=== PATIENT | female | born 1940 | race Caucasian/White ===

== ENCOUNTER → 2019-04-15 09:31 | Outpatient (CLI) | payer MEDICARE, OTHER, SELFPAY ==
--- NOTE | 2019-04-15 | DI.US.S_ITS ---
PROCEDURE: US CAROTID DOPPLER BI INDICATIONS: BILATERAL TINNITUS TECHNIQUE: Color and pulse Doppler interrogation was performed of both carotid systems, with image documentation and velocity measurements. COMPARISON: None. FINDINGS: Stenosis calculations are based on SRU (Society of Radiologists in Ultrasound) criteria. Right side: Common carotid artery peak systolic velocity: 74 cm/sec. Internal carotid artery peak systolic velocity: 64 cm/sec. Internal carotid artery end diastolic velocity: 19 cm/sec. External carotid artery peak systolic velocity: 75 cm/sec. ICA/CCA peak systolic ratio: 0.9. Tracy scale imaging description: Mild to moderate plaque. Percent internal carotid artery stenosis: Less than 50% stenosis. Vertebral artery: Flow direction is antegrade. Left side: Common carotid artery peak systolic velocity: 77 cm/sec. Internal carotid artery peak systolic velocity: 77 cm/sec. Internal carotid artery end diastolic velocity: 22 cm/sec. External carotid artery peak systolic velocity: 43 cm/sec. ICA/CCA peak systolic ratio: 1.0. Tracy scale imaging description: Moderate calcified plaque. Percent internal carotid artery stenosis: Less than 50% stenosis. Vertebral artery: Flow direction is antegrade. IMPRESSION: Less than 50% stenosis in the bilateral ICA. Dictated by: Michele Garcia M.D. on 04/15/2019 at 13:40 Approved by: Michele Garcia M.D. on 04/15/2019 at 13:43
== END ==
PROVIDERS: Referring Provider Otolaryngology; Visit Provider Otolaryngology
DX: I65.23 Occlusion and stenosis of bilateral carotid arteries (principal); H93.13 Tinnitus, bilateral
CPT/HCPCS: 93880

== ENCOUNTER → 2019-06-10 07:18 | Outpatient (CLI) | payer MEDICARE, OTHER, SELFPAY ==
[2019-06-10 07:30] LABS: WBC Urine None Seen (0-5/HPF)
[2019-06-10 09:33] LABS: Erythrocyte Sedimentation Rate 8 MM/HR (0-20)
[2019-06-10 09:35] LABS: Add Manual Diff / Slide Review NO; Alanine Aminotransferase 24 IU/L (<35); Albumin 4.6 g/dL (3.5-5.0); Albumin Globulin Ratio 1.5 (1.0-2.8); Alkaline Phosphatase 65 U/L (38-126); Aspartate Aminotransferase 42 IU/L (14-36); BUN Creatinine Ratio 22.6 (6-22); Basophils Absolute Auto 100 /uL (0-100); Basophils Percent Auto 2.2 % (0-2); Bilirubin Total 0.4 mg/dL (0.2-1.3); Blood Urea Nitrogen 21 mg/dL (7-17); Carbon Dioxide 25 mmol/L (22-32); Chloride 106 mmol/L (98-107); Cholesterol 217 mg/dL (140-199); Eosinophils Absolute Auto 300 /uL (0-450); Estimated Glomerular Filt Rate 58.5 mL/min (>60); Globulin 3.1 g/dL (1.7-4.1); Glucose 93 mg/dL (80-110); HDL Cholesterol 79 mg/dL (40-60); HEMOLYSIS < 15 (0-50); Hematocrit 40.1 % (36-46); Hemoglobin 13.4 g/dL (12.0-16.0); LDL Cholesterol Calculated 125 mg/dL (<100); Lymphocytes Absolute Auto 1400 /uL (1100-4500); Lymphocytes Percent Auto 28.7 % (25-40); Mean Corpuscular HGB Conc 33.6 % (30-36); Mean Corpuscular Hemoglobin 29.8 PG (26-34); Mean Corpuscular Volume 88.7 fL (80-100); Monocytes Absolute Auto 400 /uL (0-900); Monocytes Percent Auto 8.9 % (3-14); Neutrophils Absolute Auto 2700 /uL (1500-7000); Neutrophils Percent Auto 54.2 % (50-75); Platelet Count 260 X10^3/uL (150-400); Potassium 5.3 mmol/L (3.4-5.1); Red Blood Cell Count 4.52 X10^6/uL (4.0-5.2); Red Cell Distribution Width 14.1 % (11.6-14.8); Sodium 138 mmol/L (137-145); Total Protein 7.7 g/dL (6.3-8.2); Triglycerides 66 mg/dL (35-150); White Blood Cell Count 4.9 X10^3/uL (4.5-11.0)
[2019-06-10 09:39] LABS: C-Reactive Protein Quant < 0.5 mg/dL (<1.0)
[2019-06-10 09:44] LABS: Hemoglobin A1C% w Est Avg Glu 5.3 % (4.0-6.0)
[2019-06-10 09:48] LABS: Free T4, Direct Thyroxine 1.69 ng/dL (0.78-2.19)
[2019-06-10 10:02] LABS: Thyroid Stimulating Hormone 0.83 uIU/mL (0.47-4.68)
[2019-06-10 10:07] LABS: Appearance Urine UA CLEAR; Bilirubin Urine UA NEGATIVE (NEGATIVE); Color Urine UA YELLOW; Glucose Urine UA NEGATIVE (Negative); Ketones Urine UA NEGATIVE (NEGATIVE); Leukocyte Esterase Urine UA NEGATIVE (NEGATIVE); Nitrite Urine UA NEGATIVE (Negative); Occult Blood Urine UA NEGATIVE (Negative); Protein Urine UA NEGATIVE (Negative); Specific Gravity Urine UA 1.015 (1.000-1.035); Urobilinogen Urine UA 0.2 E.U./dL (0.2)
[2019-06-10 10:08] LABS: Bacteria Urine Occasional (0-1); RBC Urine 0-1/HPF (0-5/HPF)
== END ==
PROVIDERS: Referring Provider Specialist; Visit Provider Specialist
DX: R50.9 Fever, unspecified (principal); R73.9 Hyperglycemia, unspecified; E03.9 Hypothyroidism, unspecified
CPT/HCPCS: 36415; 80053; 80061; 81001; 83036; 84439; 84443; 85025; 85651; 86140

== ENCOUNTER → 2020-05-07 12:01 | Outpatient (CLI) | payer MEDICARE, OTHER, SELFPAY ==
[2020-05-07] MEDS: COVID-19 VACC, Ad26(JANSSEN)/PF 0.5 ML IM (12:18)
== END ==
PROVIDERS: Visit Provider Internal Medicine
DX: Z23 Encounter for immunization (principal)
CPT/HCPCS: 0031A; 91303

== ENCOUNTER → 2020-07-24 10:40 | Outpatient (CLI) | payer MEDICARE, OTHER, SELFPAY ==
--- NOTE | 2020-07-24 10:43 | DI.MG.S_ITS ---
BILATERAL DIGITAL SCREENING MAMMOGRAM 3D/2D WITH CAD: 07/24/2020 CLINICAL: Family history of breast cancer. Routine screening. Comparison is made to exams dated: 07/30/2018 mammogram, 07/04/2016 mammogram, and 06/12/2015 mammogram - [facility]. The tissue of both breasts is extremely dense, which lowers the sensitivity of mammography. Current study was also evaluated with a Computer Aided Detection (CAD) system. No significant masses, calcifications, or other findings are seen in either breast. There has been no significant interval change. IMPRESSION: NEGATIVE There is no mammographic evidence of malignancy. A 1 year screening mammogram is recommended. This exam was interpreted at Station ID: [id number]. NOTE: For mammograms, a report in lay terms will be sent to the patient. Approximately 15% of breast malignancies will not be visualized mammographically. In the management of a palpable breast mass, a negative mammogram must not discourage biopsy of a clinically suspicious lesion. Electronically Signed By: Michele worthington/fady:07/24/2020 14:50:31 letter sent: Normal Exam ACR BI-RADS Category 1: Negative [id number]
== END ==
PROVIDERS: PCP Specialist; Referring Provider Specialist; Visit Provider Specialist
DX: Z12.31 Encounter for screening mammogram for malignant neoplasm of breast (principal); Z80.3 Family history of malignant neoplasm of breast
CPT/HCPCS: 77063; 77067

== ENCOUNTER → 2021-02-04 08:34 | Outpatient (CLI) | payer MEDICARE, OTHER, SELFPAY ==
[2021-02-04 11:30] LABS: Cortisol AM (Before 10AM) 10.4 ug/dL (4.46-22.7)
== END ==
PROVIDERS: PCP Specialist; Referring Provider Specialist; Visit Provider Specialist
DX: R53.83 Other fatigue (principal)
CPT/HCPCS: 36415; 82533

== ENCOUNTER → 2021-02-05 11:23 | Outpatient (CLI) | payer MEDICARE, OTHER, SELFPAY ==
--- NOTE | 2021-02-05 | DI.RAD.S_ITS ---
PROCEDURE: XR DEXA AXIAL SKELETON INDICATIONS: Other specified disorders of bone density and stru COMPARISON: None. FINDINGS: This blank DEXA report has been sent in error by the PACS system. The correct and complete report will be forthcoming in 1-2 days. Thank you for your patience and understanding. Dictated by: Paris Bansal MD, PhD on 02/05/2021 at 14:38 Approved by: Paris Bansal MD, PhD on 02/05/2021 at 14:38
== END ==
PROVIDERS: PCP Specialist; Referring Provider Specialist; Visit Provider Specialist
DX: M81.0 Age-related osteoporosis without current pathological fracture (principal); E07.9 Disorder of thyroid, unspecified; Z78.0 Asymptomatic menopausal state; Z82.62 Family history of osteoporosis
CPT/HCPCS: 77080

== ENCOUNTER → 2023-01-17 13:27 | Outpatient (CLI) | payer MEDICARE, OTHER, SELFPAY ==
[2023-01-17 14:17] LABS: Add Manual Diff / Slide Review NO; Basophils Absolute Auto 100 /uL (0-100); Basophils Percent Auto 1.3 % (0-2); Eosinophils Absolute Auto 300 /uL (0-450); Eosinophils Percent Auto 3.7 % (2-4); Hematocrit 39.7 % (36-46); Hemoglobin 13.5 g/dL (12.0-16.0); Lymphocytes Absolute Auto 1700 /uL (1100-4500); Lymphocytes Percent Auto 22.6 % (25-40); Mean Corpuscular Hemoglobin 29.5 PG (26-34); Mean Corpuscular Volume 86.7 fL (80-100); Monocytes Absolute Auto 600 /uL (0-900); Monocytes Percent Auto 7.3 % (3-14); Neutrophils Absolute Auto 4900 /uL (1500-7000); Neutrophils Percent Auto 65.1 % (50-75); Platelet Count 251 X10^3/uL (150-400); Red Blood Cell Count 4.58 X10^6/uL (4.0-5.2); Red Cell Distribution Width 13.7 % (11.6-14.8); White Blood Cell Count 7.6 X10^3/uL (4.5-11.0)
[2023-01-17 14:27] LABS: Hemoglobin A1C% w Est Avg Glu 5.3 % (4.0-6.0)
[2023-01-17 14:50] LABS: Alanine Aminotransferase 20 IU/L (<35); Albumin 4.4 g/dL (3.5-5.0); Albumin Globulin Ratio 1.6 (1.0-2.8); Alkaline Phosphatase 79 U/L (38-126); Aspartate Aminotransferase 30 IU/L (14-36); BUN Creatinine Ratio 26.2 (6-22); Bilirubin Total 0.6 mg/dL (0.2-1.3); Blood Urea Nitrogen 27 mg/dL (7-17); Carbon Dioxide 23 mmol/L (22-32); Chloride 103 mmol/L (98-107); Cholesterol 212 mg/dL (140-199); Estimated Glomerular Filt Rate 55 mL/min (>60); Globulin 2.8 g/dL (1.7-4.1); Glucose 106 mg/dL (80-110); HDL Cholesterol 79 mg/dL (40-60); HEMOLYSIS < 15 (0-50); LDL Cholesterol Calculated 109 mg/dL (<100); Potassium 4.3 mmol/L (3.4-5.1); Sodium 136 mmol/L (137-145); Total Protein 7.2 g/dL (6.3-8.2); Triglycerides 121 mg/dL (35-150)
[2023-01-17 15:18] LABS: Thyroid Stimulating Hormone 0.368 uIU/mL (0.47-4.68)
== END ==
PROVIDERS: PCP Specialist; Referring Provider Internal Medicine Cardiovascular Disease; Visit Provider Internal Medicine Cardiovascular Disease
DX: I50.32 Chronic diastolic (congestive) heart failure (principal); I10 Essential (primary) hypertension
CPT/HCPCS: 36415; 80053; 80061; 83036; 84443; 85025

== ENCOUNTER → 2023-02-14 14:23 | Outpatient (CLI) | payer MEDICARE, OTHER, SELFPAY ==
--- NOTE | 2023-02-14 14:25 | DI.MG.S_ITS ---
BILATERAL DIGITAL SCREENING MAMMOGRAM 3D/2D WITH CAD: 02/14/2023 CLINICAL: Routine screening. Family history of breast cancer. Comparison is made to exams dated: 07/24/2020 mammogram - [facility], 07/30/2018 mammogram, and 07/04/2016 mammogram - [facility]. Both breasts are heterogeneously dense, which may obscure small masses (category c / 51-75% glandular tissue). Current study was also evaluated with a Computer Aided Detection (CAD) system. No significant masses, calcifications, or other findings are seen in either breast. There has been no significant interval change. IMPRESSION: NEGATIVE There is no mammographic evidence of malignancy. A 1 year screening mammogram is recommended. Based on the Tyrer Cuzick model (a risk assessment model) the patient's lifetime risk is 1.9% and her 10 year risk is 0.0%. According to the ACR, ACS, and NCCN guidelines, an annual breast MRI exam along with mammogram is recommended if the patient's lifetime risk is 20% or greater. This exam was interpreted at Station ID: [id number]. NOTE: For mammograms, a report in lay terms will be sent to the patient. Approximately 15% of breast malignancies will not be visualized mammographically. In the management of a palpable breast mass, a negative mammogram must not discourage biopsy of a clinically suspicious lesion. Electronically Signed By: Vianey mejia/fady:02/14/2023 16:44:40 letter sent: Normal Exam ACR BI-RADS Category 1: Negative [id number]
== END ==
PROVIDERS: PCP Specialist; Referring Provider Specialist; Visit Provider Specialist
DX: Z12.31 Encounter for screening mammogram for malignant neoplasm of breast (principal); Z80.3 Family history of malignant neoplasm of breast
CPT/HCPCS: 77063; 77067

== ENCOUNTER → 2023-02-24 09:20 | Outpatient (CLI) | payer MEDICARE, OTHER, SELFPAY ==
--- NOTE | 2023-02-24 | DI.NM.S_ITS ---
PROCEDURE: NM SARA PERF SPECT R&S PHARM Rest and pharmacological stress myocardial perfusion SPECT with gated imaging and ejection fraction RADIOPHARMACEUTICAL: 12.3 mCi Tc-99m tetrafosmin IV at rest and 26.2 mCi Tc-99m tetrafosmin IV at peak effect of pharmacological stress. Agi-dai-doqhbolx was performed. INDICATIONS: SHORTNESS OF BREATH TECHNIQUE: Radiopharmaceutical was injected at peak stress test, and also at rest. SPECT images were obtained. SPECT myocardial perfusion images were displayed in short axis, horizontal long axis, and vertical long axis views. Gated images were reviewed using [employer] software. COMPARISON: None. CARDIAC STRESS: A pharmacologic stress test was performed under the supervision of an attending staff, using an infusion of lexiscan 0.4mg IV X1. Hemodynamic data: There is normal blood pressure and heart rate response to pharmacologic stress. Symptoms: The patient denied anginal chest pain. Aminophylline: none EKG: No diagnostic changes of ischemia; no ectopy. FINDINGS: Raw data: There is good myocardial uptake of radiotracer. No significant motion artifacts. Pcdd-yg-bebus ratio is 0.29 (normal is less than 0.38 for tetrafosmin tracer). Left ventricle function: Gated images demonstrate normal left ventricular wall thickening. No segmental wall motion abnormalities. No transient ischemic dilation; TID is 1.18 (normal less than 1.3). Left ventricle resting end diastolic volume is 48mL. Left ventricle stress ejection fraction is 87%; normal range is above 45%. Myocardial perfusion: There is a moderately intense fixed apical septal defect that improves with prone imaging, suggesting artifact but old small non-transmural infarction can't be excluded. No ischemia. IMPRESSION: Low risk, probably normal pharm nuclear stress test. 1) There is a moderately intense fixed apical septal defect that improves with prone imaging, suggesting artifact but old small non-transmural infarction can't be excluded. No ischemia. 2) Normal left ventricular size, wall motion, and systolic function (EF post stress 87%). 3) No angina during the study. 4) No ST changes during the study. 5) No prior nuclear stress test available for comparison. Dictated by: Alfredo Hogue MD on 02/24/2023 at 17:08 Approved by: Alfredo Hogue MD on 02/24/2023 at 17:11
== END ==
LOC: NUCM 09:22
PROVIDERS: PCP Nurse Practitioner; Referring Provider Internal Medicine Cardiovascular Disease; Visit Provider Internal Medicine Cardiovascular Disease
DX: R06.02 Shortness of breath (principal)
CPT/HCPCS: 78452; 93017; A9502; J2785

== ENCOUNTER → 2023-05-30 10:16 | Outpatient (CLI) | payer OTHER, SELFPAY ==
--- NOTE | 2023-05-30 10:17 | DI.RAD.S_ITS ---
PROCEDURE: XR SHOULDER LT MIN 2V INDICATIONS: Left shoulder pain x4+ mos TECHNIQUE: 3 views of the shoulder were acquired. COMPARISON: None. FINDINGS: Bones: No fractures or dislocations. Mild degenerative changes of the glenohumeral acromioclavicular joints. No suspicious bony lesions. Visualized ribs appear intact. Soft tissues: No suspicious soft tissue calcifications. IMPRESSION: No acute bony abnormality. Mild degenerative changes of the glenohumeral and acromioclavicular joints. Dictated by: Simeon Odonnell M.D. on 05/30/2023 at 11:46 Approved by: Simeon Odonnell M.D. on 05/30/2023 at 11:46
== END ==
PROVIDERS: Family Provider Nurse Practitioner; PCP Nurse Practitioner; Referring Provider Nurse Practitioner; Visit Provider Nurse Practitioner
DX: M25.512 Pain in left shoulder (principal)
CPT/HCPCS: 73030

== ENCOUNTER → 2023-08-30 12:23 | Outpatient (CLI) | payer OTHER, SELFPAY ==
[2023-08-30 13:16] LABS: Appearance Urine UA CLEAR; Bilirubin Urine UA NEGATIVE (NEGATIVE); Color Urine UA YELLOW; Glucose Urine UA NEGATIVE (Negative); Ketones Urine UA NEGATIVE (NEGATIVE); Leukocyte Esterase Urine UA NEGATIVE (NEGATIVE); Nitrite Urine UA NEGATIVE (Negative); Occult Blood Urine UA NEGATIVE (Negative); Protein Urine UA NEGATIVE (Negative); Urobilinogen Urine UA 0.2 E.U./dL (0.2)
[2023-08-30 13:18] LABS: Add Manual Diff / Slide Review NO; Basophils Absolute Auto 100 /uL (0-100); Basophils Percent Auto 0.8 % (0-2); Eosinophils Absolute Auto 200 /uL (0-450); Eosinophils Percent Auto 3.3 % (2-4); Hematocrit 39.8 % (36-46); Hemoglobin 13.6 g/dL (12.0-16.0); Lymphocytes Absolute Auto 1500 /uL (1100-4500); Mean Corpuscular HGB Conc 34.3 % (30-36); Mean Corpuscular Hemoglobin 29.5 PG (26-34); Mean Corpuscular Volume 86.2 fL (80-100); Monocytes Absolute Auto 500 /uL (0-900); Monocytes Percent Auto 7.8 % (3-14); Neutrophils Absolute Auto 4200 /uL (1500-7000); Neutrophils Percent Auto 65.1 % (50-75); Platelet Count 255 X10^3/uL (150-400); Red Blood Cell Count 4.61 X10^6/uL (4.0-5.2); Red Cell Distribution Width 13.9 % (11.6-14.8); White Blood Cell Count 6.4 X10^3/uL (4.5-11.0)
[2023-08-30 13:27] LABS: Bacteria Urine Occasional (0-1); Culture Indicated Urine Cult Not Indicated; RBC Urine 0-1/HPF (0-5/HPF); Squamous Epithelial Cell Urine 0-1 /HPF (0-5/HPF); Urine Volume 10mL (spun); WBC Urine 0-1/HPF (0-5/HPF)
[2023-08-30 13:46] LABS: Hemoglobin A1C% w Est Avg Glu 5.2 % (4.0-6.0)
[2023-08-30 13:48] LABS: Alanine Aminotransferase 23 IU/L (<35); Albumin 4.9 g/dL (3.5-5.0); Albumin Globulin Ratio 1.7 (1.0-2.8); Alkaline Phosphatase 87 U/L (38-126); Aspartate Aminotransferase 35 IU/L (14-36); BUN Creatinine Ratio 21.5 (6-22); Bilirubin Total 0.5 mg/dL (0.2-1.3); Blood Urea Nitrogen 20 mg/dL (7-17); Calcium 9.9 mg/dL (8.4-10.2); Carbon Dioxide 26 mmol/L (22-32); Chloride 103 mmol/L (98-107); Cholesterol 245 mg/dL (140-199); Estimated Glomerular Filt Rate > 60 mL/min (>60); Globulin 2.9 g/dL (1.7-4.1); Glucose 109 mg/dL (80-110); HEMOLYSIS < 15 (0-50); Potassium 4.9 mmol/L (3.4-5.1); Sodium 137 mmol/L (137-145); Total Protein 7.8 g/dL (6.3-8.2); Triglycerides 96 mg/dL (35-150)
[2023-08-30 13:56] LABS: HDL Cholesterol 111 mg/dL (40-60); LDL Cholesterol Calculated 115 mg/dL (<100)
[2023-08-30 14:08] LABS: Free T3, Triiodothyronine Free 4.17 pg/mL (2.77-5.27); Free T4, Direct Thyroxine 1.89 ng/dL (0.78-2.19)
[2023-08-30 14:21] LABS: Thyroid Stimulating Hormone 1.12 uIU/mL (0.47-4.68)
[2023-08-30 15:03] LABS: Creatinine Urine Random 66.14 mg/dL
[2023-08-30 15:06] LABS: Microalbumin Urine Random 1.6 mg/dL (0-1.6)
== END ==
PROVIDERS: Family Provider Nurse Practitioner; PCP Nurse Practitioner; Referring Provider Nurse Practitioner; Visit Provider Nurse Practitioner
DX: F41.9 Anxiety disorder, unspecified (principal); F32.A Depression, unspecified; R73.01 Impaired fasting glucose; I10 Essential (primary) hypertension; E03.9 Hypothyroidism, unspecified; N28.9 Disorder of kidney and ureter, unspecified; R30.0 Dysuria; Z87.898 Personal history of other specified conditions
CPT/HCPCS: 36415; 80053; 80061; 81001; 82043; 82570; 83036; 84439; 84443; 84481; 85025

== ENCOUNTER → 2024-03-11 14:50 | Outpatient (CLI) | payer OTHER, SELFPAY ==
--- NOTE | 2024-03-11 14:52 | DI.RAD.S_ITS ---
PROCEDURE: XR THORACIC SPINE 2V INDICATIONS: pain, fell in Oct TECHNIQUE: 3 views of the thoracic spine were acquired. COMPARISON: None. FINDINGS: Thoracic spine curvature and alignment: Slight rightward curve noted. Bones: There are no fractures or other osseous abnormalities. Disc spaces: Mild degenerative disc disease seen throughout the upper midthoracic spine. Soft tissues: No soft tissue swelling, calcification or mass. IMPRESSION: No fracture or other posttraumatic change. Dictated by: Vinicio Garcia M.D. on 03/12/2024 at 9:29 Approved by: Vinicio Garcia M.D. on 03/12/2024 at 9:29
--- NOTE | 2024-03-11 14:52 | DI.RAD.S_ITS ---
PROCEDURE: XR LUMBAR SPINE 2-3V INDICATIONS: pain, fell in Oct TECHNIQUE: 3 views of the lumbar spine were acquired. COMPARISON: None. FINDINGS: Lumbar spine curvature and alignment: Slight rightward curve lower thoracic and lumbar spine appreciated. Bones: There are no osseous abnormalities. Disc spaces: Mild degenerative disc disease is seen from T8-9 through L1-2. There is mild degenerative facet disease L4-5 L5-S1. Soft tissues: No soft tissue swelling, calcification or mass. IMPRESSION: Mild degeneration. No fracture posttraumatic change Dictated by: Vinicio Garcia M.D. on 03/12/2024 at 9:30 Approved by: Vinicio Garcia M.D. on 03/12/2024 at 9:31
[2024-03-11 16:40] LABS: Hematocrit 41.3 % (36-46); Hemoglobin 14.1 g/dL (12.0-16.0); Mean Corpuscular HGB Conc 34.1 % (30-36); Mean Corpuscular Hemoglobin 29.8 PG (26-34); Mean Corpuscular Volume 87.4 fL (80-100); Platelet Count 254 X10^3/uL (150-400); Red Blood Cell Count 4.72 X10^6/uL (4.0-5.2); Red Cell Distribution Width 13.7 % (11.6-14.8); White Blood Cell Count 7.1 X10^3/uL (4.5-11.0)
[2024-03-11 17:07] LABS: Alanine Aminotransferase 26 IU/L (<35); Albumin 4.9 g/dL (3.5-5.0); Alkaline Phosphatase 81 U/L (38-126); Aspartate Aminotransferase 36 IU/L (14-36); BUN Creatinine Ratio 22.1 (6-22); Bilirubin Total 0.6 mg/dL (0.2-1.3); Blood Urea Nitrogen 21 mg/dL (7-17); Calcium 9.7 mg/dL (8.4-10.2); Carbon Dioxide 26 mmol/L (22-32); Chloride 104 mmol/L (98-107); Cholesterol 179 mg/dL (140-199); Estimated Glomerular Filt Rate 60 mL/min (>60); Glucose 86 mg/dL (80-110); HDL Cholesterol 88 mg/dL (40-60); HEMOLYSIS < 15 (0-50); LDL Cholesterol Calculated 75 mg/dL (<100); Sodium 138 mmol/L (137-145); Triglycerides 82 mg/dL (35-150)
[2024-03-11 17:37] LABS: TSH w/ Reflex to FT4 0.56 uIU/mL (0.47-4.68)
[2024-03-11 17:58] LABS: Albumin Globulin Ratio 1.7 (1.0-2.8); Globulin 2.9 g/dL (1.7-4.1); Total Protein 7.8 g/dL (6.3-8.2)
== END ==
PROVIDERS: Family Provider Nurse Practitioner; PCP Family Medicine; Referring Provider Family Medicine; Visit Provider Family Medicine
DX: E78.5 Hyperlipidemia, unspecified (principal); M54.6 Pain in thoracic spine; M54.50 Low back pain, unspecified; F32.A Depression, unspecified; I10 Essential (primary) hypertension; E03.9 Hypothyroidism, unspecified
CPT/HCPCS: 36415; 72070; 72100; 80053; 80061; 84443; 85027

== ENCOUNTER 2024-03-26 13:40 | Emergency (ER) | payer OTHER, SELFPAY ==
[2024-03-26 14:05] VITALS: BP 141/69; PULSE 71; RESP 18; TEMP 37.1; O2SAT 97; BMI 17.2
--- NOTE | 2024-03-26 14:19 | DI.RAD.S_ITS ---
PROCEDURE: XR WRIST RT MIN 3V INDICATIONS: Fall last night, landed on R arm, bruising and swelling TECHNIQUE: 4 views of the wrist were acquired. COMPARISON: None. FINDINGS: Bones: Question possible nondisplaced distal scaphoid fracture extending to the distal articular surface. This is not definite. It is not a typical scaphoid waist fracture. Question possible nondisplaced radial styloid fracture. No suspicious bony lesions. Soft tissues: No suspicious soft tissue calcifications. IMPRESSION: Question atypical scaphoid fracture and question radial styloid fracture. Comment: Recommend CT wrist. Dictated by: Anthony Enrique M.D. on 03/26/2024 at 14:54 Approved by: Anthony Enrique M.D. on 03/26/2024 at 14:55
--- NOTE | 2024-03-26 14:20 | DI.RAD.S_ITS ---
PROCEDURE: XR HAND RT MIN 3V INDICATIONS: Fall, R hand bruising and swelling TECHNIQUE: 3 views of the hand(s) acquired. COMPARISON: [facility], CR, XR WRIST RT MIN 3V, 03/26/2024, 14:21. FINDINGS: Bones: Possible vertical nondisplaced fracture of the distal scaphoid extending to the triscaphe joint. This is not definite. Possible nondisplaced radial styloid fracture. This is not definite. Soft tissues: No suspicious soft tissue calcifications. IMPRESSION: Question atypical distal scaphoid fracture and question radial styloid fracture. Comment: Recommend CT wrist. Dictated by: Anthony Enrique M.D. on 03/26/2024 at 15:01 Approved by: Anthony Enrique M.D. on 03/26/2024 at 15:11
--- NOTE | 2024-03-26 15:08 | DI.CT.S_ITS ---
PROCEDURE: CT UE RT WO CON INDICATIONS: ?schaphoid, radial styloid fx TECHNIQUE: Noncontrast 1 mm axial sections acquired through the carpal bones, with coronal and sagittal reformats. COMPARISON: [facility], CR, XR WRIST RT MIN 3V, 03/26/2024, 14:21. FINDINGS: Image quality: Excellent. Bones: There is a minimally displaced fracture involving posterior aspect of distal radius extending to base of radial styloid. Vertical fracture is also noted involving dorsal aspect of triquetrum with minimal posterior and distal displacement at fracture site. No other fracture or dislocation. No suspicious bony lesions. Osteoarthritic changes are noted throughout wrist joints. Soft tissues: Mild soft tissue swelling around wrist joint and over dorsal aspect of carpal bones are seen. No discrete drainable fluid collection. No abnormal soft tissue calcifications. No full-thickness extensor or flexor tendon ruptures. IMPRESSION: 1. Minimally displaced intra-articular fracture involving dorsal aspect of distal radius as above. 2. Minimally displaced fracture involving posterior aspect of triquetrum. 3. No scaphoid fracture. Wrist joint osteoarthritis. No CT evidence of avascular necrosis. 4. Soft tissue swelling over dorsal aspect of carpal bones and around wrist joint. No abnormal soft tissue calcifications. No full-thickness wrist tendon rupture. Dictated by: Ronaldo Stephens M.D. on 03/26/2024 at 15:50 Approved by: Ronaldo Stephens M.D. on 03/26/2024 at 15:54
[2024-03-26] MEDS: HYDROCODONE/ACET 5/325 TABLET 1 TAB PO (16:56)
[2024-03-26 17:02] VITALS: BP 140/63; PULSE 70; RESP 16; O2SAT 96
--- NOTE | 2024-04-08 15:44 | ED.FALL ---
HPI - Fall <Sigrid Zepeda PA-C - Last Filed: 04/08/24 15:58> General Chief Complaint: Fall Stated Complaint: Fell and hit head and rt wrist pain Time Seen by Provider: 03/26/24 15:06 Source: patient Mode of arrival: Family Vehicle History of Present Illness HPI Narrative: 83-year-old female presents to the ED status post a right wrist injury and head injury after falling last night. Patient had a trip and fall accident in the kitchen, causing her to fall to the ground, tried to brace her fall with her right hand. Patient also hit the left temporal on an open hide curer door. Denies LOC. Not on blood thinners. Patient's current complaint is about the right wrist swelling and pain and inability to move it without pain. No numbness, tingling, weakness. Patient states that her right temporal is very mildly sore, is not concerned about it. Related Data Home Medications Medication Instructions Recorded Confirmed trazodone 100 mg tablet mg PO DAILY 03/28/24 03/28/24 Previous Rx's Medication Instructions Recorded ibuprofen 600 mg tablet 600 mg PO TID PRN 04/04/23 neck/shoulder/upper back pain #90 tabs atorvastatin 20 mg tablet (Lipitor) 20 mg PO BEDTIME cholesterol #90 09/19/23 tabs levothyroxine 100 mcg tablet 100 mcg PO DAILY #90 tabs 09/19/23 sertraline 100 mg tablet 200 mg (2 x 100 mg) PO DAILY #180 09/19/23 tabs losartan 25 mg tablet 25 mg PO DAILY #90 tabs 11/14/23 losartan 50 mg tablet 50 mg PO DAILY #90 tabs 11/14/23 Allergies Allergy/AdvReac Type Severity Reaction Status Date / Time budesonide [BUDESONIDE] Allergy Unknown tachycardia Unverified 03/28/24 09:19 Review of Systems <Sigrid Zepeda PA-C - Last Filed: 04/08/24 15:58> Constitutional Constitutional: Denies chills, Denies fatigue, Denies fever(s), Denies frequent falls, Denies lethargy and Denies weakness Eyes Eyes: Denies change in vision, Denies eye discharge, Denies irritation and Denies loss of vision ENT Ears, Nose, Mouth, and Throat: Denies change in voice, Denies dizziness, Denies neck pain, Denies sore throat and Denies throat swelling Cardiovascular Cardiovascular: Denies chest pain, Denies irregular heart rhythm, Denies lightheadedness, Denies palpitations, Denies dyspnea, Denies dyspnea on exertion and Denies orthopnea Respiratory Respiratory: Denies cough, Denies dyspnea, Denies dyspnea on exertion and Denies wheezing Gastrointestinal Gastrointestinal: Denies abdominal pain, Denies change in bowel habits, Denies diarrhea, Denies nausea and Denies vomiting Musculoskeletal Musculoskeletal: Denies neck pain and Denies numbness Comments: Right wrist swelling, pain Integumentary/Breasts Skin/Breast: Denies pruritus, Denies erythema, Denies rash and Denies wounds Neurologic Neurologic: Denies behavioral changes, Denies confusion, Denies dizziness, Denies frequent falls, Denies loss of vision, Denies numbness and Denies weakness Psychiatric Psychiatric: Denies anxiety, Denies behavioral changes, Denies confusion, Denies depression, Denies homicidal ideation and Denies suicidal ideation Endocrine Endocrine: Denies fatigue, Denies flushing and Denies palpitations Hematologic/Lymphatic Hematologic/Lymphatic: Denies easy bruising Allergic/Immunologic Allergic/Immunologic: Denies urticaria, Denies throat swelling and Denies wheezing Patient History <Sigrid Zepeda PA-C - Last Filed: 04/08/24 15:58> Medical History Hyperlipidemia Allergies Depression Anxiety Shoulder pain Hearing loss (~2021) Fibroids History of urinary incontinence Fecal incontinence Skin rash (~2015) History of colitis Hypertension (~1971) Hypothyroidism Surgical History Anesthesia History of hysterectomy Social History Smoking Status: Never smoker Smoking Status: Never smoker Exam <Sigrid Zepeda PA-C - Last Filed: 04/08/24 15:58> Narrative Exam Narrative: Const General:?cooperative, healthy appearing and comfortable [facility] Head: Mild swelling, Tenderness to the left temporal. Ears:?hearing grossly normal bilaterally Nose:?external nose normal Face and sinus:?normal facial exam and sinuses nontender Mouth:?oral mucosae normal Throat:?posterior oropharynx normal Eyes General:?appearance normal, both eyes and all related structures Neck Neck:?normal visual inspection and no lymphadenopathy noted Resp Effort & Inspection:?normal respiratory effort Auscultation:?clear to auscultation bilaterally Cardio Rate:?regular rate Rhythm:?regular rhythm Musculoskeletal Swelling, tenderness to palpation to right wrist. Range of motion severely limited by pain. Neurovascularly intact. Neuro General:?patient alert, patient awake and patient oriented x3 Initial Vital Signs Initial Vital Signs: Vital Signs Temperature 98.7 F 03/26/24 14:05 Pulse Rate 71 03/26/24 14:05 Respiratory Rate 18 03/26/24 14:05 Blood Pressure 141/69 H 03/26/24 14:05 Pulse Oximetry 97 03/26/24 14:05 Oxygen Delivery Method Room Air 03/26/24 14:05 <Lorena Fuchs DO - Last Filed: 04/10/24 07:15> Initial Vital Signs Initial Vital Signs: Vital Signs Temperature 98.7 F 03/26/24 14:05 Pulse Rate 71 03/26/24 14:05 Respiratory Rate 18 03/26/24 14:05 Blood Pressure 141/69 H 03/26/24 14:05 Pulse Oximetry 97 03/26/24 14:05 Oxygen Delivery Method Room Air 03/26/24 14:05 Course <Sigrid Zepeda PA-C - Last Filed: 04/08/24 15:58> Orders Ordered: Discontinued Medications Hydrocodone Bitart/Acetaminophen (Hydrocodone/Acet 5/325 Tablet) 1 tab PO NOW ONE Stop: 03/26/24 16:38 Last Admin: 03/26/24 16:56 Dose: 1 tab Documented By: SHAWN <Lorena Fuchs DO - Last Filed: 04/10/24 07:15> Orders Ordered: Discontinued Medications Hydrocodone Bitart/Acetaminophen (Hydrocodone/Acet 5/325 Tablet) 1 tab PO NOW ONE Stop: 03/26/24 16:38 Last Admin: 03/26/24 16:56 Dose: 1 tab Documented By: SHAWN MDM - Fall <Sigrid Zepeda PA-C - Last Filed: 04/08/24 15:58> [facility] Narrative Medical decision making narrative: 83-year-old female presents to the ED status post a right wrist injury and head injury after falling last night. X-rays of the hand and wrist were obtained. Wrist x-ray with questionable atypical scaphoid fracture and questionable radial styloid fracture. Radiologist recommended a CT wrist. Patient declines head CT. CT shows a minimally displaced intra-articular fracture involving dorsal aspect of distal radius. There is a minimally displaced fracture involving posterior aspect of triquetrum. No scaphoid fracture. Wrist joint osteoarthritis. No CT evidence of avascular necrosis. Soft tissue swelling over dorsal aspect of carpal bones and around wrist joint. No abnormal soft tissue calcifications. No full-thickness wrist tendon rupture. Discussed findings with patient. Patient was fitted in a splint, sling. Pain medications prescribed. Recommend follow-up with ortho as soon as possible. ED return precautions discussed with patient. Patient verbalized understanding. Medical records reviewed: Yes Discharge Plan Departure Patient Disposition: Home Clinical Impression: Distal radius fracture, Fx triquetral, wrist-closed Instructions: DI for Wrist Fracture, How to Prevent Falls Activity Restrictions/Additional Instructions: You were evaluated in the ED today for a wrist injury. You have 2 fractures of the right wrist. You have been fitted in a splint and a sling. Please keep these on for the next 4-6 weeks. [facility] at [phone] to make an appointment for follow-up. You may take hydrocodone and Tylenol for pain relief. Return to the ED if you have worsening symptoms, numbness, tingling, weakness. Prescriptions: No Action trazodone 100 mg tablet PO DAILY losartan 25 mg tablet 25 mg PO DAILY Qty: 90 3RF Rx Instructions: Take one in the morning. losartan 50 mg tablet 50 mg PO DAILY Qty: 90 3RF Rx Instructions: Take one in the evening. ibuprofen 600 mg tablet 600 mg PO TID PRN (Reason: neck/shoulder/upper back pain) Qty: 90 1RF levothyroxine 100 mcg tablet 100 mcg PO DAILY Qty: 90 3RF sertraline 100 mg tablet 200 mg PO DAILY Qty: 180 3RF atorvastatin [Lipitor] 20 mg tablet 20 mg PO BEDTIME Qty: 90 3RF Referrals: Ky Rosas DO [Primary Care Provider] - Stand Alone Forms: Patient Portal/API/Survey ED Sign-out <Lorena Fuchs DO - Last Filed: 04/10/24 07:15> Cosign ED Attending Rohith Attestation: I was immediately available in the department for consultation.
== END 2024-03-26 17:03 | disposition home or self-care (01) ==
PROVIDERS: Emergency Provider Student in an Organized Health Care Education/Training Program; Family Provider Nurse Practitioner; PCP Family Medicine
DX: S52.501A Unspecified fracture of the lower end of right radius, initial encounter for closed fracture (principal); S62.111A Displaced fracture of triquetrum [cuneiform] bone, right wrist, initial encounter for closed fracture; S09.90XA Unspecified injury of head, initial encounter; W01.198A Fall on same level from slipping, tripping and stumbling with subsequent striking against other object, initial encounter
CPT/HCPCS: 29125; 29550; 73110; 73130; 73200; 99284

== ENCOUNTER → 2024-06-14 14:03 | Outpatient (CLI) | payer OTHER, SELFPAY ==
--- NOTE | 2024-06-14 14:04 | DI.RAD.S_ITS ---
PROCEDURE: XR DEXA AXIAL SKELETON INDICATIONS: screening for osteoporosis progression COMPARISON: [facility], CR, XR DEXA AXIAL SKELETON, 02/05/2021, 12:18. FINDINGS: Lumbar Spine: Bone mineral density 0.861 g/cm2, T score -1.7, decreased by 7.2%. Left Femoral Neck: Bone mineral density 0.558 g/cm2, T score -2.6. Left Hip: Bone mineral density 0.592 g/cm2, T score -2.9, decreased by 9.4%. Fracture Risk Calculation (when applicable): 10-year fracture risk of a major osteoporotic fracture 30 percent and of a hip fracture 22 percent. (T score greater or equal to -1.0 to: NORMAL) (T score from -1.1 to -2.4: OSTEOPENIA) (T score less than or equal to -2.5: OSTEOPOROSIS) IMPRESSION: Osteoporosis by WHO classification. Follow-up guidelines as follows: Osteoporosis: Consider a repeat DEXA and Vertebral Fracture Assessment (VFA) exam in 2 years or sooner if medically necessary, to reassess this patient's status. Osteopenia: Consider a repeat DEXA in 2-3 years to reassess this patient's status, or if there is a new clinical indication. Normal: Consider a repeat DEXA in 5 years or sooner, or if there is a new clinical indication. All treatment decisions require clinical judgment and consideration of individual patient factors, including patient preferences, comorbidities, previous drug use, risk factors not captured in the FRAX model (e.g., frailty, falls, vitamin D deficiency, increased bone turnover, interval significant decline in bone density ) and possible under- or over-estimation of fracture risk by FRAX. In addition, the NOF Guide recommends that FDA-approved medical therapies be considered in postmenopausal women and men age >= 50 years with a: * Hip or vertebral (clinical or morphometric) fracture * T-score of <=-2.5 at the spine or hip * Ten-year fracture probability by FRAX of >= 3% for hip fracture or >=20% for major osteoporotic fracture. Dictated by: Simeon Odonnell M.D. on 06/14/2024 at 16:20 Approved by: Simeon Odonnell M.D. on 06/14/2024 at 16:21
--- NOTE | 2024-06-14 14:04 | DI.MG.S_ITS ---
MM screening mammo BI: 06/14/2024. BI-RADS: 1 CLINICAL: 83-year old female for bilateral screening mammogram. Tyrer-Cuzick lifetime risk of 0.6%. Current reported family history of breast cancer: sister. PRIOR EXAMS 02/14/2023, 07/24/2020. MAMMOGRAPHY TECHNIQUE: 2D and 3D (tomosynthesis) digital mammographic views obtained, with additional images as needed for full coverage. Current study was also evaluated with a Computer Aided Detection (CAD) system. DENSITY C. The breasts are heterogeneously dense, which may obscure small masses. MAMMOGRAPHY FINDINGS Bilateral: No suspicious mass, asymmetry, microcalcification, or other abnormality seen. No significant change from comparison. IMPRESSION: * No evidence of malignancy. RECOMMENDATIONS Bilateral * Annual screening mammography. OVERALL ASSESSMENT CATEGORY BI-RADS-1: Negative. The [employer] recommends annual screening mammography beginning at age 40 for women with average risk of breast cancer. ELECTRONICALLY SIGNED: Vianey Vences M.D. on 06/17/2024 at 06:02:31 PM PT Interpreting Station ID: [id number]
== END ==
LOC: RAD 14:03
PROVIDERS: Family Provider Nurse Practitioner; PCP Family Medicine; Referring Provider Family Medicine; Visit Provider Family Medicine
DX: M81.0 Age-related osteoporosis without current pathological fracture (principal); Z80.3 Family history of malignant neoplasm of breast; Z12.31 Encounter for screening mammogram for malignant neoplasm of breast; R92.333 Mammographic heterogeneous density, bilateral breasts
CPT/HCPCS: 77063; 77067; 77080

== ENCOUNTER → 2024-09-09 13:37 | Outpatient (CLI) | payer OTHER, SELFPAY ==
--- NOTE | 2024-09-09 13:39 | DI.RAD.S_ITS ---
PROCEDURE: XR CHEST 2V INDICATIONS: YANG TECHNIQUE: 2 views of the chest were acquired. COMPARISON: None. FINDINGS: Heart, mediastinum and pulmonary vascular: Heart is normal in size and configuration. Mediastinum is unremarkable. Pulmonary vascular is normal. Lungs: Probable COPD featuring elevated lung volumes and wall thickening of the central bronchi. There is also mild pleural parenchymal scarring lung apices. Scattered calcified granulomas noted Pleural spaces: Normal-no effusions or pneumothorax. 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 No acute disease Osteoporosis suspected. Consider repeat DEXA scan Dictated by: Vinicio Garcia M.D. on 09/10/2024 at 11:06 Approved by: Vinicio Garcia M.D. on 09/10/2024 at 11:08
[2024-09-09 14:31] LABS: Alanine Aminotransferase 22 IU/L (<35); Albumin 4.9 g/dL (3.5-5.0); Albumin Globulin Ratio 1.9 (1.0-2.8); Alkaline Phosphatase 93 U/L (38-126); Blood Urea Nitrogen 22 mg/dL (7-17); Calcium 9.9 mg/dL (8.4-10.2); Carbon Dioxide 24 mmol/L (22-32); Chloride 104 mmol/L (98-107); Estimated Glomerular Filt Rate > 60 mL/min (>60); Globulin 2.6 g/dL (1.7-4.1); Glucose 91 mg/dL (70-99); HEMOLYSIS < 15 (0-50); Potassium 4.2 mmol/L (3.4-5.1); Sodium 138 mmol/L (137-145); Total Protein 7.5 g/dL (6.3-8.2)
[2024-09-09 14:32] LABS: Hematocrit 38.6 % (36-46); Hemoglobin 13.2 g/dL (12.0-16.0); Mean Corpuscular HGB Conc 34.2 % (30-36); Mean Corpuscular Hemoglobin 29.8 PG (26-34); Mean Corpuscular Volume 87.1 fL (80-100); Platelet Count 225 X10^3/uL (150-400)
[2024-09-09 15:01] LABS: TSH w/ Reflex to FT4 1.40 uIU/mL (0.47-4.68)
== END ==
PROVIDERS: Family Provider Nurse Practitioner; PCP Family Medicine; Referring Provider Family Medicine; Visit Provider Family Medicine
DX: R06.09 Other forms of dyspnea (principal); E03.9 Hypothyroidism, unspecified; I10 Essential (primary) hypertension; G47.00 Insomnia, unspecified
CPT/HCPCS: 36415; 71046; 80053; 84443; 85027

== ENCOUNTER → 2024-09-24 13:46 | Outpatient (CLI) | payer OTHER, SELFPAY ==
--- NOTE | 2024-09-24 13:47 | DI.ECHO.S_ITS ---
[facility] : : [id number] : : [place] : : [id number] : : Phone: [phone] Echocardiogram Report + + :Name: MINNIE VACA Study Date: 09/24/2024 Height: 63 in : :[facility] ReadingLocation: Weight: 95 lb : : Gender: Female BSA: 1.4 m2 : :: 1940 Age: 83 yrs BP: 160/96 mmHg: :Reason For Study: DYPSNEA ON EXERTION : :Ordering Physician: SUMAN, : :BARRON Performed By: Sly Villanueva : :Referring: BARRON WILL : + + Interpretation Summary The left ventricle is normal in size. The ejection fraction is estimated to be 55-60%. The right ventricle is normal in size and function. There is mild mitral regurgitation. There is mild tricuspid regurgitation. The right ventricular systolic pressure is estimated to be at least 36 mmHg based on an estimated right atrial pressure of 3 mm Hg. There is mild luminal irregularity and echogenicity in the abdominal aorta, suggestive of aortic atherosclerotic disease. Procedure: A two-dimensional transthoracic echocardiogram with color flow and Doppler was performed. The study quality was technically good. There is no prior echocardiogram noted for this patient. LBBB. Left Ventricle: The left ventricle is normal in size. There is normal left ventricular wall thickness. There is no thrombus. The ejection fraction is estimated to be 55-60%. Septal motion is consistent with conduction abnormality. MV E/A: 1.1 Med Peak E' Liu: 6.2 cm/sec E/E' med: 15.3. Right Ventricle: The right ventricle is normal in size and function. Atria: The left atrial size is normal. Right atrial size is normal. There is no Doppler evidence for an interatrial shunt. Mitral Valve: The mitral valve leaflets appear normal. There is no evidence of stenosis, fluttering, or prolapse. There is mild mitral regurgitation. Aortic Valve: The aortic valve is trileaflet. The aortic valve opens well. There is no aortic valve stenosis. No aortic regurgitation is present. Tricuspid Valve: The tricuspid valve is normal. There is mild tricuspid regurgitation. The right ventricular systolic pressure is estimated to be at least 36 mmHg based on an estimated right atrial pressure of 3 mm Hg. Pulmonic Valve: The pulmonic valve is normal in structure and function. There is trace pulmonic regurgitation. Great Vessels: The aortic root is normal size. The ascending aorta could not be visualized. There is mild luminal irregularity and echogenicity in the abdominal aorta, suggestive of aortic atherosclerotic disease. The pulmonary artery is normal size. The IVC is of normal diameter and collapses greater than 50% with a sniff. This suggests a low right atrial pressure of 3 mm Hg. Pericardium/ Pleura There is no pericardial effusion. There is no pleural effusion. MMode/2D Measurements & Calculations LVIDd: 4.1 cm LVOT diam: 2.1 cm LVIDs: 3.0 cm Ao root diam: 2.9 cm FS: 26.8 % EPSS: 0.37 cm IVSd: 0.77 cm LVPWd: 0.75 cm LV sawyer. diameter/BSA (cm/m^2): 2.9 LV sys. diameter/BSA (cm/m^2): 2.1 LA A2 area: 12.1 cm2 RA long axis: 3.5 cm LA A4 area: 14.9 cm2 RA area: 10.7 cm2 LA length (vol): 4.2 cm RA vol: 27.9 ml LA vol: 36.0 ml RA : 19.8 ml/m2 LA vol index: 25.6 ml/m2 IVC diam: 1.3 cm RVD1 (basal): 2.8 cm RVD2 (mid): 1.9 cm TAPSE: 2.6 cm Doppler Measurements & Calculations Ao V2 max: 126.3 cm/sec LVOT Max Liu: 80.4 cm/sec Ao V2 mean: 86.6 cm/sec LV V1 max P.6 mmHg Ao max P.4 mmHg LV V1 VTI: 18.1 cm Ao mean P.4 mmHg PAMELLA(I,D): 2.4 cm2 Ao V2 VTI: 26.0 cm PAMELLA(V,D): 2.2 cm2 sev ratio: 0.70 PAMELLA indexed to BSA (cm^2/m^2): 1.7 MV E max liu: 95.0 cm/sec TR max liu: 289.6 cm/sec MV A max liu: 83.5 cm/sec TR max P.6 mmHg MV E/A: 1.1 PA V2 max: 83.6 cm/sec Med Peak E' Liu: 6.2 cm/sec PA V2 mean: 60.3 cm/sec E/E' med: 15.3 PA mean P.6 mmHg Lat Peak E' Liu: 7.6 cm/sec PA pr(Accel): 41.3 mmHg E/E' lat: 12.5 E/e' average: 13.9 MV dec time: 0.21 sec [facility] 62.6 ml Reading Physician:05:10 PM
== END ==
LOC: ECHO 13:46
PROVIDERS: Family Provider Nurse Practitioner; PCP Family Medicine; Referring Provider Family Medicine; Visit Provider Family Medicine
DX: I08.1 Rheumatic disorders of both mitral and tricuspid valves (principal); R06.09 Other forms of dyspnea; E03.9 Hypothyroidism, unspecified; I10 Essential (primary) hypertension; G47.00 Insomnia, unspecified
CPT/HCPCS: 93306

== ENCOUNTER → 2025-02-21 09:47 | Outpatient (CLI) | payer OTHER, SELFPAY ==
[2025-02-21 11:22] LABS: Influenza A - CEPHEID Flu A NEGATIVE (NEGATIVE); Influenza B - CEPHEID Flu B NEGATIVE (NEGATIVE)
[2025-02-21 11:34] LABS: COVID-19 CEPHEID 4-PLEX PCR Negative (Negative)
== END ==
PROVIDERS: PCP Family Medicine; Visit Provider Family Medicine
DX: R50.9 Fever, unspecified (principal)
CPT/HCPCS: 87637

== ENCOUNTER → 2025-02-21 10:10 | Outpatient (CLI) | payer OTHER, SELFPAY ==
--- NOTE | 2025-02-21 10:11 | DI.RAD.S_ITS ---
PROCEDURE: XR CHEST 2V INDICATIONS: sob, fever TECHNIQUE: 2 views of the chest were acquired. COMPARISON: [facility], CR, XR CHEST 2V, 09/09/2024, 12:43. FINDINGS: Surgical changes and devices: None. Lungs and pleura: Mildly hyperinflated lungs with slightly coarse interstitial markings. There is a rounded opacity in the right mid lung, perihilar region projecting over the 8th posterior right rib arc. Inferiorly, there is ill-defined opacity projecting over the right 10 through 11th rib arcs. The left lung is clear. Possible small right pleural effusion. No pneumothorax. Mediastinum: Mediastinal contours are normal. Heart size is normal. Bones and chest wall: No suspicious bony abnormalities. Soft tissues appear unremarkable. IMPRESSION: Multifocal right lung parenchymal opacities and probable small effusion. This is most likely infectious pneumonia, however the rounded morphology of one opacity is suspicious for malignancy. Follow-up chest CT with contrast following antibiotic course is recommended. Dictated by: Vianey Vences M.D. on 02/21/2025 at 14:00 Approved by: Vianey Vences M.D. on 02/21/2025 at 14:03
== END ==
PROVIDERS: PCP Family Medicine; Referring Provider Family Medicine; Visit Provider Family Medicine
DX: R06.02 Shortness of breath (principal); R53.81 Other malaise; R53.83 Other fatigue
CPT/HCPCS: 71046; 87637